=== PATIENT | female | born 1980 | race Caucasian/White ===

== ENCOUNTER 2022-12-15 12:35 | Outpatient (CLI) | payer OTHER, SELFPAY | END 2022-12-15 12:36 | disposition home or self-care (01) | PROVIDERS: PCP Physician Assistant Medical; Visit Provider Physician Assistant Medical | DX: R19.5 Other fecal abnormalities (principal) | CPT/HCPCS: 80053; 82784; 84443; 86140; 86364 ==

== ENCOUNTER 2023-01-14 09:50 | Outpatient (CLI) | payer OTHER, SELFPAY ==
--- NOTE | 2023-01-14 11:09 | W.ANESCHARGE ---
Anesthesia Charges Start Date/Time Anesthesia Start Date: 01/14/23 Anesthesia Start Time: 10:37 Stop Date/Time Anesthesia Stop Date: 01/14/23 Anesthesia Stop Time: 11:05
--- NOTE | 2023-01-14 12:24 | W.ANESCHARGE ---
Anesthesia Charges Start Date/Time Anesthesia Start Date: 01/14/23 Anesthesia Start Time: 10:37 Stop Date/Time Anesthesia Stop Date: 01/14/23 Anesthesia Stop Time: 11:05
== END 2023-01-14 09:51 | disposition home or self-care (01) ==
LOC: OP CLINIC 09:51
PROVIDERS: PCP Physician Assistant Medical; Visit Provider Internal Medicine
DX: R10.84 Generalized abdominal pain (principal); K62.89 Other specified diseases of anus and rectum; K62.5 Hemorrhage of anus and rectum
CPT/HCPCS: 45380; 811; 88305; J2704